=== PATIENT | female | born 1990 | race Two or more races ===

== ENCOUNTER 2018-05-29 08:15 | Emergency (ER) | payer SELFPAY ==
[~2018-05-29] VITALS: Ht 157.5 cm; Wt 117.9 kg
[2018-05-29 08:30] VITALS: BP 125/90
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
[2018-05-29] MEDS ORDERED: Isovue-300 100ml vial INJ PRN (09:15)
[2018-05-29] MEDS ORDERED: Ketorolac 30mg Inj IV ONE (09:15)
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
--- NOTE | 2018-05-29 09:23 | NUR ---
ED Nurse Note: BLOOD DRAWN AND URINE COLLECTED AND SENT TO LAB.
[2018-05-29 09:31] LABS: APPEARANCE,URINE CLEAR; BASOPHILS % (AUTO) 0.8 % (0.0-2.0); BILIRUBIN, URINE NEGATIVE (NEGATIVE); COLOR,URINE PALE YELLOW; EOSINOPHILS % (AUTO) 1.7 % (0.0-3.0); GLUCOSE, URINE (UA) NEGATIVE (NEGATIVE); HEMATOCRIT 37.5 % (37.0-47.0); HEMOGLOBIN 12.5 G/DL (12.0-16.0); KETONES,URINE NEGATIVE (NEGATIVE); LEUKOCYTE ESTERASE ,URINE 3+ (NEGATIVE); LYMPHOCYTES % (AUTO) 27.7 % (20.0-45.0); MEAN CORPUSCULAR VOLUME 89 FL (80-99); MONOCYTES % (AUTO) 5.7 % (1.0-10.0); NITRITE,URINE NEGATIVE (NEGATIVE); PH,URINE 7 (4.5-8.0); PLATELET COUNT 334 K/UL (150-450); PROTEIN,URINE NEGATIVE (NEGATIVE); RED BLOOD COUNT 4.22 M/UL (4.20-5.40); RED CELL DISTRIBUTION WIDTH 13.7 % (11.6-14.8); UROBILINOGEN,URINE NORMAL MG/DL (0.0-1.0)
[2018-05-29 09:37] LABS: ANION GAP 6 mmol/L (5-15); BLOOD UREA NITROGEN 10 mg/dL (7-18); CALCIUM 9.3 MG/DL (8.5-10.1); CARBON DIOXIDE 27 MMOL/L (21-32); CHLORIDE 106 MMOL/L (98-107); CREATININE 0.6 MG/DL (0.55-1.30); POTASSIUM 3.8 MMOL/L (3.5-5.1); SODIUM 139 MMOL/L (136-145)
[2018-05-29 09:42] LABS: ALANINE AMINOTRANSFERASE 37 U/L (12-78); ALBUMIN 3.7 G/DL (3.4-5.0); ALBUMIN/GLOBULIN RATIO 0.9 (1.0-2.7); ALKALINE PHOSPHATASE 77 U/L (46-116); ASPARTATE AMINO TRANSFERASE 17 U/L (15-37); BILIRUBIN,TOTAL 0.4 MG/DL (0.2-1.0)
[2018-05-29 10:30] VITALS: BP 118/85
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
[2018-05-29] MEDS ORDERED: ACETAMINOPHEN500 M3 ORAL (14:24)
[2018-05-29] MEDS ORDERED: TRAMADOL HCL50 MG ORAL (14:24)
[2018-05-29] MEDS ORDERED: CYCLOBENZAPRINE10 MG ORAL (14:24)
[2018-05-29] MEDS ORDERED: IBUPROFEN800 MG ORAL (14:24)
[2018-05-29] MEDS ORDERED: NITROFURANTOIN100 M2 ORAL (14:36)
[2018-05-29 14:38] VITALS: BP 124/77
--- NOTE | 2018-05-29 14:41 | NUR ---
ER DISCHARGE NOTE: Patient is cleared to be discharged per ERMD, pt is aox4, on room air, with stable vital signs. pt was given dc and prescription instructions, pt was able to verbalize understanding, pt id band and iv site removed without complications. pt is able to ambulate with steady gait. pt's mom is picking pt up to home. took all belongings.
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
== END 2018-05-29 14:42 | disposition home or self-care (01) ==
LOC: EDBD 08:15 → EMR 08:55
DX: S40.022A Contusion of left upper arm, initial encounter (principal); S86.812A Strain of other muscle(s) and tendon(s) at lower leg level, left leg, initial encounter; S39.012A Strain of muscle, fascia and tendon of lower back, initial encounter; V43.52XA Car driver injured in collision with other type car in traffic accident, initial encounter; Y92.410 Unspecified street and highway as the place of occurrence of the external cause; N39.0 Urinary tract infection, site not specified; N20.0 Calculus of kidney
CPT/HCPCS: 36415; 72132; 73060; 73562; 73590; 74177; 80053; 81003; 81025; 85025; 87086; 96361; 96374; 99284; J1885; Q9967